=== PATIENT | female | born 1935 | race Caucasian/White ===

== ENCOUNTER 2017-09-18 20:09 | Emergency (ER) | payer MEDICARE, BC ==
--- NOTE | 2017-09-18 20:57 | ED Physician Documentation ---
General Adult - HISTORIAN Historian: patient, other (family) - HPI Stated Complaint: fall, head injury/laceration; L hip/shoulder pain Chief Complaint: General Adult Onset: minutes Timing: still present Further Comments: yes (Pt is an 82 yo female who fell backwards when a family dog jumped up on her. Pt struck the back of her head and sustained a laceration when her head stuck some furniture. Pt c/o L shoulder and L hip pain. Tetanus is utd.) - ROS CONST: no problems EYES/ENT: none CVS/RESP: none GI/: none MS/SKIN/LYMPH: other (laceration occipital scalp) - PAST HX Past History: other (Fibromyalgia, GERD,) Surgeries/Procedures: hysterectomy, other (tonsillectomy, ortho surg.) Allergies/Adverse Reactions: Allergies Allergy/AdvReac Type Severity Reaction Status Date / Time hydrochlorothiazide Allergy Intermediate Hives Verified 09/18/17 20:43 Sulfa (Sulfonamide Allergy Intermediate Hives Verified 09/18/17 20:43 Antibiotics) Home Medications: Ambulatory Orders Medication Instructions Recorded Unobtainable [Unobtainable] 09/18/17 - SOCIAL HX Smoking History: non-smoker - FAMILY HX Family History: No - REVIEWED ASSESSMENTS Nursing Assessment Reviewed: Yes Vitals Reviewed: Yes Procedures Wound Location: head, other (parietal scalp) Wound Length: 9 cm Wound's Depth, Shape: superficial Wound Explored: clean Irrigated w/ Saline (ccs): 20 Betadine Prep?: No (Hunter) Wound Debrided: minimal Wound Repaired With: stef (#6) Layer Closure?: No Progress - Progress Progress: CT head w/o contrast: 1. Left parietal scalp injury without skull fracture or intracranial hemorrhage. 2. Brain atrophy and chronic small vessel ischemic changes. X-ray L shoulder: Healed left humeral neck fracture and acromioclavicular osteoarthritis without acute abnormality. X-ray L hip: Osteopenia is present without fracture, dislocation, arthropathy, or focal bone lesion. Triple antibiotic to stapled area. Rx Keflex 500 mg po bid x 5 days Topical abx to stapled site bid x 5 days. F/u pcp for staple removal in 5 to 7 days. General Adult Physical Exam - PHYSICAL EXAM GENERAL APPEARANCE: mild distress EENT: eye inspection normal, ENT inspection normal, pharynx normal NECK: normal inspection, supple RESPIRATORY: no resp distress, chest non-tender, breath sounds normal CVS: reg rate & rhythm, heart sounds normal ABDOMEN: soft, no organomegaly, normal bowel sounds BACK: normal inspection, no CVA tenderness SKIN: other (9 cm laceration, occipital scalp) EXTREMITIES: other (L shoulder soreness, inhibited rom; L hip soreness, FROM, no shortening or rotation) NEURO: oriented X3, CN's nml as tested, motor nml, sensation nml Discharge Clincal Impression: fall, head injury, musculoskeletal pain Referrals: Primary Doctor,No [Primary Care Provider] - Condition: Stable Disposition: 01 HOME, SELF-CARE Decision to Admit: NO Decision Time: 22:00
--- NOTE | 2017-09-18 21:48 | Diagnostic Imaging Report ---
[facility] [address] [facility].[address] 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 A left parietal scalp contusion is present without intracranial hemorrhage or skull fracture. Impression: 1. Left parietal scalp injury without skull fracture or intracranial hemorrhage. 2. Brain atrophy and chronic small vessel ischemic changes. Electronically signed on Sep 18, 2017 9:47:57 PM PROPERTY AND CASUALTY INSURANCE AGENT by: Vj HOUGH
--- NOTE | 2017-09-18 21:49 | Diagnostic Imaging Report ---
[facility] [address] [facility] [address] [address] Report Submission Date: Sep 18, 2017 9:48:43 PM DEGREE CLERK Patient Study Name: GOYO MOBLEY Date: Sep 18, 2017 9:25:05 PM DEGREE CLERK Modality Type: CR Gender: F Description: PELVIS : 37 Institution: [facility] Physician: JOANNA DAY Left hip 2 views History: Pain after fall Findings: Osteopenia is present without fracture, dislocation, arthropathy, or focal bone lesion. Electronically signed on Sep 18, 2017 9:48:43 PM DEGREE CLERK by: Vj HOUGH
--- NOTE | 2017-09-18 21:50 | Diagnostic Imaging Report ---
[facility] [address] [facility].[address] [address] Report Submission Date: Sep 18, 2017 9:49:53 PM CALCIMINER Patient Study Name: GOYO MOBLEY Date: Sep 18, 2017 9:30:00 PM CALCIMINER Modality Type: CR Gender: F Description: SHOULDER : 37 Institution: [facility] Physician: JOANNA DAY Left shoulder 3 views History: Pain after fall Findings: A transvenous pacemaker is present. Mild left acromioclavicular osteoarthritis is observed. A healed left humeral neck and greater tuberosity fracture is observed. There is no acute fracture or dislocation. Impression: Healed left humeral neck fracture and acromioclavicular osteoarthritis without acute abnormality. Electronically signed on Sep 18, 2017 9:49:53 PM CALCIMINER by: Vj HOUGH
[2017-09-18] MEDS: CEPHALEXIN 250 MG CAPSULE PO ONE (22:07)
[2017-09-18 22:51] VITALS: BP 179/69
== END 2017-09-18 22:18 | disposition home or self-care (01) ==
LOC: ED 20:09
DX: S01.01XA Laceration without foreign body of scalp, initial encounter (principal); W19.XXXA Unspecified fall, initial encounter; Y93.9 Activity, unspecified; Y99.9 Unspecified external cause status
CPT/HCPCS: 12004; 70450; 73030; 99283